=== PATIENT | male | born 1955 | race Caucasian/White ===

== ENCOUNTER 2017-07-04 06:11 | Emergency (ER) | payer OTHER ==
[~2017-07-04] VITALS: Ht 180.3 cm; Wt 101.0 kg
[2017-07-04] MEDS ORDERED: SODIUM CHLORIDE 0.9% 1,000 ML IV ONE (06:28)
[2017-07-04] MEDS ORDERED: SODIUM CHLORIDE 0.9% 1,000ML IVBOLUS ONE (06:30)
[2017-07-04] MEDS ORDERED: KETOROLAC 30 MG/1 ML IVPush ONE (06:30)
[2017-07-04] MEDS ORDERED: ONDANSETRON 2MG/ML, 2ML IVPush ONE (06:30)
[2017-07-04] MEDS ORDERED: LOVA10TA PO (06:37)
[2017-07-04] MEDS ORDERED: MELO15TA24 PO (06:37)
[2017-07-04] MEDS ORDERED: TAMS0.4C2 PO (06:37)
[2017-07-04] MEDS ORDERED: SYNTHROID (06:37)
[2017-07-04] MEDS ORDERED: DILT240C PO (06:37)
[2017-07-04] MEDS ORDERED: ATEN25TA PO (06:37)
[2017-07-04] MEDS ORDERED: KETOROLAC 30 MG/1 ML ONE (06:42)
[2017-07-04] MEDS ORDERED: ONDANSETRON 2MG/ML, 2ML ONE (06:42)
[2017-07-04 06:58] LABS: HEMATOCRIT 48.3 % (39.2-51.8); HEMOGLOBIN 16.8 g/dL (13.7-18.0); WHITE BLOOD COUNT 4.9 x10^3/uL (3.4-10)
[2017-07-04 07:06] LABS: BLOOD UREA NITROGEN 12 mg/dL (7-18)
[2017-07-04 07:48] VITALS: BP 146/88
[2017-07-04 08:33] LABS: PATH.CAST-FLAG NOT PRESENT; SPERM-FLAG NOT PRESENT; SRC-FLAG NOT PRESENT; XTAL-FLAG NOT PRESENT; YLC-FLAG NOT PRESENT
[2017-07-04] MEDS ORDERED: morphine SULFATE 10 MG/ML, 1ML IVPush ONE (09:00)
[2017-07-07] MEDS ORDERED: OXYC1TAB7 PO (15:34)
[2017-07-07] MEDS ORDERED: LEVO112T4 PO (15:34)
[2017-07-07] MEDS ORDERED: DILT240C61 PO (15:34)
== END 2017-07-04 09:23 | disposition home or self-care (01) ==
LOC: ED 06:58
DX: N20.1 Calculus of ureter (principal)
CPT/HCPCS: 36415; 74000; 76770; 80048; 81001; 82040; 85025; 96361; 96374; 96375; 99285; J1885; J2405; J7030

== ENCOUNTER 2017-07-21 13:51 | Day surgery (SDC) | payer OTHER ==
[~2017-07-21] VITALS: Ht 180.3 cm; Wt 98.5 kg
[~2017-07-21 13:51] MED LIST: ALBUTEROL/IPRATROPIUM 2.5MG/0.5MG, 3 ML NPPB PRN; ATEN25TA PO; CEFAZOLIN 1,000 MG ONE; DEXAMETHASONE 4 MG/ML, 1ML ONE; DIAZEPAM 5 MG/ML, 2ML IVPush PRN; DILT240C PO; DILT240C61 PO; EPHEDRINE 50 MG/ML, 1ML IVPush PRN; FENTANYL PF 100 MCG/2ML IV PRN; FENTANYL PF 100 MCG/2ML ONE; GLYCOPYRROLATE 0.2MG/1ML, 5ML ONE; HYDROcodone/APAP 7.5-325MG/15ML UDC PO PRN; HYDROmorphone 1 MG/ML, 1ML IV PRN; KETOROLAC 30 MG/1 ML IV PRN; LABETALOL 5MG/ML, 20ML IV PRN; LEVO112T4 PO; LIDOCAINE-MPF 2% ,5ML ONE; LOVA10TA PO; MELO15TA24 PO; MEPERIDINE/PF 25MG/0.5ML IVPush PRN; MIDAZOLAM 1 MG/ML, 2ML IV PRN; MIDAZOLAM 1 MG/ML, 2ML ONE; ONDANSETRON 2MG/ML, 2ML IVPush PRN; OXYC1TAB7 PO; OXYcodone 5 MG/5 ML ORAL.SOL UDC PO PRN; PROPOFOL 10 MG/ML, 20ML ONE; ROCURONIUM 10 MG/ML,10ML ONE; SYNTHROID; TAMS0.4C2 PO; morphine SULFATE 10 MG/ML, 1ML IV PRN
[2017-07-21 14:16] VITALS: BP 163/79
[2017-07-21] MEDS ORDERED: LACTATED RINGERS 1,000 ML IV SCH (14:18)
== END 2017-07-21 18:30 ==
LOC: OR 13:51
PROVIDERS: ATTEND Urology
DX: N35.8 Other urethral stricture (principal); E78.5 Hyperlipidemia, unspecified; I10 Essential (primary) hypertension; Z87.440 Personal history of urinary (tract) infections; Z87.442 Personal history of urinary calculi; Z88.5 Allergy status to narcotic agent; Z88.8 Allergy status to other drugs, medicaments and biological substances
CPT/HCPCS: 52276; J0690; J1100; J2250; J2704; J3010; J3490; J7120